=== PATIENT | male | born 1970 | race Caucasian/White ===

== ENCOUNTER → 2017-06-02 | Outpatient (CLI) | payer OTHER ==
--- NOTE | 2017-06-03 08:55 | CT ---
EXAMINATION TYPE: CT brain wo/w con DATE OF EXAM: 06/02/2017 COMPARISON: NONE HISTORY: Patient states he has been having seizures. CT DLP: 2114.90 mGycm, Automated exposure control for dose reduction was used. CONTRAST: Patient injected with 100 mL of Omnipaque 300. CT of the brain is performed utilizing 3 mm thick sections through the posterior fossa and 3 mm thick sections through the remaining calvarium. Study is performed within 24 hours of arrival to the hospital. No abnormal hyperdensity is present to suggest an acute intracranial hemorrhage. No mass lesion is evident. No acute infarcts are evident. Temporal lobes appear symmetrical. Ventricles and sulci are appropriate for the patient age. No suspicious enhancement is evident. Paranasal sinuses and mastoid air cells within the [id number] are clear. IMPRESSIONS: 1. Normal pre and postcontrast CT brain.
== END | disposition home or self-care (01) ==
LOC: RADCTMAIN 19:21
PROVIDERS: ATTEND Family Medicine
DX: R56.9 Unspecified convulsions (principal)
CPT/HCPCS: 70470; Q9967

== ENCOUNTER 2017-10-13 17:12 | Inpatient (IN) | payer OTHER ==
--- NOTE | 2017-10-13 18:16 | ED ---
General Adult HPI - General Chief complaint: Weakness Stated complaint: Weakness Time Seen by Provider: 10/13/17 17:14 Source: patient, RN notes reviewed, old records reviewed Mode of arrival: EMS Limitations: no limitations - History of Present Illness Initial comments: This is a 46-year-old male the ER for evaluation. Patient is accepted in regards to transfer. Patient was originally confused and weak, [facility], patient has no history of PEs found to be severely coagulopathic, patient also unable to ambulate. Patient himself is continued to can be confused, unable to give history history obtained from patient's chart as well as transfer paperwork EMS - Related Data Home Medications Medication Instructions Recorded Confirmed Albuterol Inhaler [Ventolin Hfa 2 puff INHALATION RT-Q6H PRN 06/04/17 10/13/17 Inhaler] Atorvastatin [Lipitor] 80 mg PO HS 06/04/17 10/13/17 Divalproex Sodium [Depakote] 1,000 mg PO BID 06/04/17 10/13/17 Venlafaxine HCl ER [Effexor XR] 150 mg PO BID 06/04/17 10/13/17 buPROPion SR [Wellbutrin SR] 150 mg PO BID 06/04/17 10/13/17 Ipratropium-Albuterol Nebulize 3 ml INHALATION RT-TID PRN 07/12/17 10/13/17 [Duoneb 0.5 mg-3 mg/3 ml Soln] Omeprazole 20 mg PO DAILY 07/12/17 10/13/17 clonazePAM [KlonoPIN] 1 mg PO TID PRN 07/12/17 10/13/17 Allopurinol [Zyloprim] 100 mg PO DAILY 10/13/17 10/13/17 Ergocalciferol (Vitamin D2) 50,000 unit PO Q30D 10/13/17 10/13/17 [Vitamin D2] HYDROcodone/APAP 10-325MG [[place] 1 tab PO Q6H PRN 10/13/17 10/13/17 10-325] Ibuprofen [Motrin] 800 mg PO Q8H PRN 10/13/17 10/13/17 QUEtiapine [SEROquel] 100 mg PO HS 10/13/17 10/13/17 Warfarin [Coumadin] 5 mg PO HS 10/13/17 10/13/17 traZODone HCL 150 mg PO HS 10/13/17 10/13/17 Previous Rx's Medication Instructions Recorded Gabapentin 800 mg PO QID 30 Days tablet 04/03/14 Allergies Allergy/AdvReac Type Severity Reaction Status Date / Time No Known Allergies Allergy Verified 10/13/17 17:45 Review of Systems ROS Statement: Those systems with pertinent positive or pertinent negative responses have been documented in the HPI. ROS Other: All systems not noted in ROS Statement are negative. Past Medical History Past Medical History: Asthma, Chest Pain / Angina, GERD/Reflux, Hyperlipidemia History of Any Multi-Drug Resistant Organisms: None Reported Past Surgical History: Appendectomy, Cholecystectomy, Joint Replacement Additional Past Surgical History / Comment(s): Left hip total replacement 2010, three digits removed on right hand at first joing (2nd, 3rd, and 4th digits); brain surgery secondary to cancer; seizures Past Anesthesia/Blood Transfusion Reactions: No Reported Reaction Past Psychological History: Depression Smoking Status: Current every day smoker Past Alcohol Use History: Abuse Past Drug Use History: Marijuana, Methamphetamine - Past Family History Father Family Medical History: No Reported History General Exam Limitations: altered mental status General appearance: alert, in no apparent distress, anxious Head exam: Present: atraumatic, normocephalic, normal inspection Eye exam: Present: normal appearance, PERRL, EOMI. Absent: scleral icterus, conjunctival injection, periorbital swelling ENT exam: Present: normal exam, mucous membranes moist Neck exam: Present: normal inspection. Absent: tenderness, meningismus, lymphadenopathy Respiratory exam: Present: normal lung sounds bilaterally. Absent: respiratory distress, wheezes, rales, rhonchi, stridor Cardiovascular Exam: Present: regular rate, normal rhythm, normal heart sounds. Absent: systolic murmur, diastolic murmur, rubs, gallop, clicks GI/Abdominal exam: Present: soft, normal bowel sounds. Absent: distended, tenderness, guarding, rebound, rigid Extremities exam: Present: normal inspection, full ROM, normal capillary refill. Absent: tenderness, pedal edema, joint swelling, calf tenderness Back exam: Present: normal inspection Neurological exam: Present: alert, oriented X3, CN II-XII intact Psychiatric exam: Present: normal affect, normal mood Skin exam: Present: warm, dry, intact, normal color. Absent: rash Course Vital Signs 10/13/17 10/13/17 17:18 18:23 Temperature 97.9 F Pulse Rate 69 78 Respiratory 16 16 Rate Blood Pressure 124/77 114/83 O2 Sat by Pulse 99 99 Oximetry - Reevaluation(s) Reevaluation #1: 10/13/17 18:59 Transfer paperwork is thoroughly reviewed Reevaluation #2: 10/13/17 19:00 Attempt airway patient here in the emergency room he is unable, falls Medical Decision Making - Medical Decision Making 46 male the ER for evaluation except in transfer for coagulopathy, elevated INR secondary to positive PEs, patient also has significant ataxia unable to ambulate and will be admitted for further evaluation by patient's physician Disposition Clinical Impression: COPD (chronic obstructive pulmonary disease), Tobacco abuse, Ataxia, Weakness, Coagulopathy Disposition: ADMITTED IP TO THIS HOSP Condition: Fair Referrals: Yuri Martínez MD [Primary Care Provider] - 1-2 days
[2017-10-13] MEDS ORDERED: LORazepam 2 MG/ML INJ IV PRN ×3 (18:55)
[2017-10-13] MEDS ORDERED: THIAMINE 100 MG/ML 2 ML VIAL IM STA (18:55)
[2017-10-13] MEDS ORDERED: HYDROcodone/APAP 5-325MG 1 EACH TAB PO STA (19:13)
[2017-10-13] MEDS: SODIUM CHLORIDE 0.9% 1,000 ML IV SCH ×2 (19:46→21:44)
[2017-10-13 22:01] VITALS: BMI 33.2
[2017-10-13] MEDS: THIAMINE 100 MG TAB PO SCH (23:24)
[2017-10-14 05:25] LABS: Basophils % (A) 1 %; Eosinophils # (A) 0.2 k/uL (0-0.7); Eosinophils % (A) 3 %; HCT 39.9 % (39.0-53.0); HGB 13.4 gm/dL (13.0-17.5); Lymphocytes # (A) 1.8 k/uL (1.0-4.8); Lymphocytes % (A) 33 %; MCH 31.1 pg (25.0-35.0); MCHC 33.5 g/dL (31.0-37.0); MCV 92.9 fL (80.0-100.0); Mean Platelet Volume 7.3; Monocytes # (A) 0.5 k/uL (0-1.0); Monocytes % (A) 9 %; Neutrophils # (A) 2.8 k/uL (1.3-7.7); Neutrophils % (A) 52 %; Platelet Count 180 k/uL (150-450); RDW 13.7 % (11.5-15.5); WBC 5.5 k/uL (3.8-10.6)
[2017-10-14 05:37] LABS: ALT 17 U/L (21-72); AST 11 U/L (17-59); Albumin 3.9 g/dL (3.5-5.0); Alkaline Phosphatase 41 U/L (38-126); Anion Gap 9 mmol/L; Blood Urea Nitrogen 9 mg/dL (9-20); Calcium 9.3 mg/dL (8.4-10.2); Carbon Dioxide 27 mmol/L (22-30); Chloride 103 mmol/L (98-107); Glucose 89 mg/dL (74-99); Potassium 4.2 mmol/L (3.5-5.1); Sodium 139 mmol/L (137-145); Total Bilirubin 0.9 mg/dL (0.2-1.3); Total Protein 6.4 g/dL (6.3-8.2)
[2017-10-14 05:43] LABS: Valproic Acid (Depakene) 47.9 ug/mL
[2017-10-14] MEDS: HYDROcodone/APAP 5-325MG 1 EACH TAB PO PRN ×2 (06:51→14:33)
[2017-10-14] MEDS ORDERED: ALBUTEROL INHALER 60 PUFF/8 GM INHALER INHALATION PRN (10:10)
[2017-10-14] MEDS ORDERED: IBUPROFEN 800 MG TAB PO PRN (10:10)
[2017-10-14] MEDS ORDERED: IPRATROPIUM-ALBUTEROL 3 ML NEB INHALATION PRN (10:10)
[2017-10-14] MEDS: THIAMINE 100 MG TAB PO SCH ×2 (14:34→17:57)
[2017-10-14] MEDS: NICOTINE 21MG/24HR PATCH TRANSDERM SCH (14:34)
[2017-10-14] MEDS: SODIUM CHLORIDE 0.9% 1,000 ML IV SCH ×2 (14:35→21:19)
[2017-10-14] MEDS: GABAPENTIN 400 MG CAP PO SCH ×3 (14:35→20:17)
--- NOTE | 2017-10-14 16:02 | P.CNNES ---
History of Present Illness Consult date: 10/14/17 Reason for Consult: Patient being evaluated for weakness and encephalopathy. History of Present Illness: This patient is a 46-year-old right-handed white male who over the past 2 weeks has been complaining of increasing weakness and confusion. He was taken to [facility] for further evaluation as he was just not feeling right. He was having difficulty ambulating and walking at home and apparently was bumping into the jose. He appeared to be more confused as well. He was seen in the emergency room and [facility]. He underwent some initial laboratory testing including a drug screen which did come back positive for opiates and tricyclics. He is on Depakote for treatment of underlying seizure disorder and his Depakote level at the hospital was toxic at 136.4. Patient apparently had a computed tomography scan of the brain done which was reported negative for any acute changes. He was transferred to [facility] for further evaluation and treatment. Patient states he has been on Depakote recently for seizure disorder. He has been on Depakote thousand milligrams by mouth twice a day. It is likely that the Depakote toxicity cause much of his symptoms of unsteady gait and encephalopathy. We have recommended a routine EEG to be done for further assessment. The patient states he has been doing better since admission to the hospital. He is more clear in his process. He has not been able to stand or ambulate yet without nursing assistance. Physical therapy has been consulted for him as well. Patient denies any previous history of diabetes. He does have history of pulmonary embolus in the past and is currently on long-term anticoagulation with Coumadin. His Depakote has been placed on hold until this evening and we will have a repeat Depakote level done tomorrow for follow-up. The patient is now admitted and neurology has been consulted for further evaluation and recommendations. Review of Systems Constitutional: Denies chills, Denies fever Eyes: denies blurred vision, denies pain Ears, nose, mouth and throat: Denies headache, Denies sore throat Cardiovascular: Denies chest pain, Denies shortness of breath Respiratory: Denies cough Gastrointestinal: Denies abdominal pain, Denies diarrhea, Denies nausea, Denies vomiting Musculoskeletal: Denies myalgias Integumentary: Denies pruritus, Denies rash Neurological: Reports change in mentation, Reports confusion, Reports gait dysfunction, Reports motor disturbance, Reports seizures, Denies numbness, Denies weakness Psychiatric: Denies anxiety, Denies depression Endocrine: Denies fatigue, Denies weight change Past Medical History Past Medical History: Asthma, Chest Pain / Angina, GERD/Reflux, Hyperlipidemia, Liver Disease, Pulmonary Embolus (PE) History of Any Multi-Drug Resistant Organisms: None Reported Past Surgical History: Appendectomy, Cholecystectomy, Joint Replacement Additional Past Surgical History / Comment(s): Left hip total replacement 2010, three digits removed on right hand at first joing (2nd, 3rd, and 4th digits); brain surgery secondary to cancer; seizures Past Anesthesia/Blood Transfusion Reactions: No Reported Reaction Past Psychological History: Depression Additional Psychological History / Comment(s): previous suicide attempt Smoking Status: Former smoker Past Alcohol Use History: Abuse Additional Past Alcohol Use History / Comment(s): Pt states last used approximately 5 years ago. Past Drug Use History: Marijuana, Methamphetamine - Past Family History Father Family Medical History: No Reported History Medications and Allergies Home Medications Medication Instructions Recorded Confirmed Type Gabapentin 800 mg PO QID 30 Days tablet 04/03/14 10/13/17 Rx Albuterol Inhaler [Ventolin Hfa 2 puff INHALATION RT-Q6H PRN 06/04/17 10/13/17 History Inhaler] Atorvastatin [Lipitor] 80 mg PO HS 06/04/17 10/13/17 History Divalproex Sodium [Depakote] 1,000 mg PO BID 06/04/17 10/13/17 History Venlafaxine HCl ER [Effexor XR] 150 mg PO BID 06/04/17 10/13/17 History buPROPion SR [Wellbutrin SR] 150 mg PO BID 06/04/17 10/13/17 History Ipratropium-Albuterol Nebulize 3 ml INHALATION RT-TID PRN 07/12/17 10/13/17 History [Duoneb 0.5 mg-3 mg/3 ml Soln] Omeprazole 20 mg PO DAILY 07/12/17 10/13/17 History clonazePAM [KlonoPIN] 1 mg PO TID PRN 07/12/17 10/13/17 History Allopurinol [Zyloprim] 100 mg PO DAILY 10/13/17 10/13/17 History Ergocalciferol (Vitamin D2) 50,000 unit PO Q30D 10/13/17 10/13/17 History [Vitamin D2] HYDROcodone/APAP 10-325MG [[place] 1 tab PO Q6H PRN 10/13/17 10/13/17 History 10-325] Ibuprofen [Motrin] 800 mg PO Q8H PRN 10/13/17 10/13/17 History QUEtiapine [SEROquel] 100 mg PO HS 10/13/17 10/13/17 History Warfarin [Coumadin] 5 mg PO HS 10/13/17 10/13/17 History traZODone HCL 150 mg PO HS 10/13/17 10/13/17 History Allergies Allergy/AdvReac Type Severity Reaction Status Date / Time No Known Allergies Allergy Verified 10/13/17 17:45 Physical Examination - Vital Signs Vital Signs: Vital Signs Temp Pulse Pulse Resp BP BP Pulse Ox 10/14/17 08:25 97.2 F L 66 16 114/69 96 10/14/17 04:00 97.8 F 63 16 136/62 95 10/13/17 23:35 97.6 F 77 16 130/68 10/13/17 20:09 97.9 F 66 16 123/75 97 10/13/17 19:50 71 18 115/76 94 L 10/13/17 18:23 78 16 114/83 99 10/13/17 17:18 97.9 F 69 16 124/77 99 Intake and Output 10/14/17 10/14/17 10/14/17 06:59 14:59 22:59 Intake Total 1200 474 Output Total 2000 400 Balance -800 74 Intake: Intake, IV Titration 700 Amount Sodium Chloride 0.9% 1, 700 000 ml @ 100 mls/hr IV . Q10H [facility] Rx#:[id number] Oral 500 474 Output: Urine 2000 400 Other: Voiding Method Urinal # Voids 2 Weight 104.3 kg - Constitutional General appearance: average body habitus, cooperative - EENT EENT: PERRL, mucous membranes moist - Respiratory Respiratory: lungs clear, normal breath sounds - Cardiovascular Cardiovascular: regular rate, normal S1, normal S2 Extremities: no peripheral edema bilaterally - Gastrointestinal Gastrointestinal: normoactive bowel sounds - Integumentary Integumentary: normal - Neurologic Cranial nerve examination: PERRL, EOMI, V1/V2/V3 grossly intact, face symmetric , tongue midline, intact gag reflex, intact corneal reflex, normal palatal elevation Speech examination: intact Sensorimotor examination: intact Motor examination - right side: 4/5: biceps, triceps, wrist flexion, wrist extension, climbing guide, hip flexors, knee extensors, dorsiflexion, toe extension (EHL) , plantarflexion Motor examination - left side: 4/5: biceps, triceps, wrist flexion, wrist extension, climbing guide, hip flexors, knee extensors, dorsiflexion, toe extension (EHL) , plantarflexion Detailed sensory examination: intact Reflex and gait examination: intact Reflexes: 1+: ankle, bicep, knee, tricep - Musculoskeletal Musculoskeletal: no pain - Psychiatric Psychiatric: mood/affect appropriate, cooperative Results - Laboratory Findings CBC and BMP: 10/14/17 05:08 10/14/17 05:08 Abnormal Lab Findings: Abnormal Labs 10/14/17 10/14/17 05:08 05:08 AST 11 L ALT 17 L Ammonia 38 H Assessment and Plan (1) Acute encephalopathy Current Visit: Yes Status: Acute Code(s): G93.40 - ENCEPHALOPATHY, UNSPECIFIED SNOMED Code(s): 78525383 (2) Seizures Current Visit: No Status: Acute Code(s): R56.9 - UNSPECIFIED CONVULSIONS SNOMED Code(s): 64819841 (3) History of pulmonary embolus (PE) Current Visit: Yes Status: Acute Code(s): Z86.711 - PERSONAL HISTORY OF PULMONARY EMBOLISM SNOMED Code(s): 802864362 (4) Coagulopathy Current Visit: Yes Status: Acute Code(s): D68.9 - COAGULATION DEFECT, UNSPECIFIED SNOMED Code(s): 08914680 (5) COPD (chronic obstructive pulmonary disease) Current Visit: Yes Status: Acute Code(s): J44.9 - CHRONIC OBSTRUCTIVE PULMONARY DISEASE, UNSPECIFIED SNOMED Code(s): 91481984 Plan: This patient is a 46-year-old male admitted with 2 week history of increasing weakness and confusion at home. He was seen in the emergency room at [facility] yesterday. He had evidence of Depakote toxicity with the Depakote level of 136.4. He underwent a computed tomography scan of the brain which was negative for any acute changes. He had evidence of a acute encephalopathy. He was transferred to [facility] for further management. His repeat Depakote level today was 47.9. He will be restarted on Depakote later this evening. The patient likely had evidence of acute encephalopathy secondary to Depakote toxicity. He is doing better and seems to be more alert and oriented. As noted his CAT scan of the brain was negative for any acute changes. Would recommend physical therapy evaluation and possible inpatient rehab placement depending on his progress. We will obtain routine EEG for further evaluation of seizure disorder. His overall prognosis at this time remains very guarded. We will continue close neurological follow- up of this patient during this admission. Time with Patient: Greater than 30
--- NOTE | 2017-10-14 17:55 | PN ---
PROGRESS NOTE DATE OF SERVICE: 10/14/2017 CHIEF COMPLAINT: Ataxia and mental status changes. HISTORY OF PRESENT ILLNESS: This gentleman is about the same. He is still a little bit confused and his speech and mentation are slowed. He has no focal neurologic signs or symptoms. He denies any headaches, chest pain, change in vision or hearing, etc. PHYSICAL EXAMINATION: His chest is clear and the cardiac exam is normal. The abdomen is soft, nontender. Extremities are normal. IMPRESSION: 1. Mental status changes. 2. Chronic obstructive pulmonary disease. 3. Encephalopathy, type unknown. 4. Depression. PLAN: Continue workup and increase activity. Await neurology consult. MMODL / IJN: [id number] /
--- NOTE | 2017-10-14 17:58 | HP ---
HISTORY AND PHYSICAL CHIEF COMPLAINT: Ataxia and dysarthria, as well as confusion. HISTORY OF PRESENT ILLNESS: This is another admission for this 46-year-old white male. He suddenly presented to a nearby hospital with inability to walk, ataxia, confusion and difficulty with speech. He had no focal neurologic symptoms or findings. His CT was normal. His vital signs were not unusual and complained of no headache, chest pain, change in vision hearing, focal neurologic deficits, fever and chills, etc. He had no urinary complaints. Past medical history, family history, personal and social histories reveal that he has had a lot of difficulty with depression, COPD, partial amputation of the right hand. He does not drink. ALLERGIES: He is not allergic to any medication. MEDICATIONS: 1. Effexor XR 150 mg twice a day. 2. Coumadin 5 mg once a day. 3. Omeprazole 20 mg once a day. 4. Klonopin 1 mg t.i.d. p.r.n. 5. Depakote 500 mg twice a day. 6. Gabapentin 800 mg 4 times a day. 7. Atorvastatin 80 mg q.h.s. 8. Trazodone 150 mg q.h.s. 9. Allopurinol 100 mg once a day. 10.Vitamin D3 50,000 units a month. 11.Seroquel 100 mg once a day. 12.Wellbutrin 150 mg twice a day. 13.Vicodin 5 q.4 hours p.r.n. 14.Ventolin HFA p.r.n. 15.Updrafts with albuterol and ipratropium bromide. 16.QVAR 40 mcg 1 puff twice a day. 17.Ibuprofen 800 mg 4 times a day. PAST SURGICAL HISTORY: 1. Surgically she has had treatment for the amputation of the right hand from welder/installer. 2. Cholecystectomy. 3. Appendectomy. 4. Total left hip. 5. Removal, basal cell carcinoma from the face. SOCIAL HISTORY: He used to smoke but does not any longer. He denies use alcohol or drugs. PHYSICAL EXAM: Blood pressure is 114/70, pulse 60, respirations 18. He is afebrile. GENERAL: He appeared to be well developed, well nourished, no acute distress. Skin color is normal. Skin is warm, dry. Lymph nodes not enlarged. Head, ears, eyes, nose, mouth, and throat were normal and neck veins not distended. Thyroid is not enlarged. Carotids are normal. Chest is clear. Cardiac exam is normal sinus rhythm and no murmurs or extra sounds. The abdomen is soft and slightly protuberant, nontender without visceromegaly or masses. Extremities are normal and neurologically sensory and motor exam is normal. His speech was slow and he seemed inappropriate. He had no cranial nerve findings or signs. IMPRESSION: He is admitted to the hospital with: Mental status changes with dizziness, confusion, and ataxia, etiology unknown. PLAN: 1. Bed rest. 2. IV fluids. 3. Frequent monitoring of his neurologic status and vital signs. 4. Neurology consult. MMODL / IJN: [id number] /
[2017-10-14 18:42] LABS: INR 1.6 (<1.2); Prothrombin Time 15.2 sec (9.0-12.0)
[2017-10-14] MEDS: WARFARIN 5 MG TAB PO SCH (20:17)
[2017-10-14] MEDS: VENLAFAXINE HCL ER 150 MG CAP PO SCH (20:17)
[2017-10-14] MEDS: DIVALPROEX 500 MG TABLET.DR PO SCH (20:17)
[2017-10-14] MEDS: buPROPion SR 150 MG TABLET.ER PO SCH (20:17)
[2017-10-14] MEDS: traZODone HCL 50 MG TAB PO SCH (20:17)
[2017-10-14] MEDS: QUEtiapine 100 MG TAB PO SCH (20:17)
[2017-10-15] MEDS: HYDROcodone/APAP 5-325MG 1 EACH TAB PO PRN ×3 (03:18→18:15)
[2017-10-15] MEDS: ALLOPURINOL 100 MG TAB PO SCH (09:51)
[2017-10-15] MEDS: buPROPion SR 150 MG TABLET.ER PO SCH ×2 (09:52→20:45)
[2017-10-15] MEDS: DIVALPROEX 500 MG TABLET.DR PO SCH ×2 (09:52→20:46)
[2017-10-15] MEDS: GABAPENTIN 400 MG CAP PO SCH ×4 (09:53→20:50)
[2017-10-15] MEDS: PANTOPRAZOLE 40 MG TABLET PO SCH (09:53)
[2017-10-15] MEDS: NICOTINE 21MG/24HR PATCH TRANSDERM SCH (09:53)
[2017-10-15] MEDS: VENLAFAXINE HCL ER 150 MG CAP PO SCH ×2 (09:53→20:47)
[2017-10-15] MEDS: SODIUM CHLORIDE 0.9% 1,000 ML IV SCH ×2 (11:39→20:43)
[2017-10-15] MEDS: THIAMINE 100 MG TAB PO SCH ×2 (13:55→18:16)
--- NOTE | 2017-10-15 14:07 | P.PN ---
Subjective Progress Note Date: 10/15/17 This patient is a 46-year-old male who was admitted to Hospital with symptoms of altered mental status and confusion. Patient has a history of underlying seizure disorder for which he was taking Depakote. He was initially admitted to Hospital in [place] and his Depakote level was toxic. He was transferred to [place] for further evaluation and treatment. He is showing slight improvement in terms of his mental status. His Depakote level is being closely followed and monitored. His repeat Depakote level this morning is 70.5. He is to be maintained on his current dose of Depakote. Would continue with PT OT evaluation for the patient and possible rehab placement depending on his progress. Patient does seem to be doing somewhat better. He is sitting up in chair next to his bed and seems to be much more awake and alert. According to his nurse he has been up and ambulating in the hallway without much difficulty. He is to have a routine EEG today which will be reviewed later to rule out any possibility of seizure focus. As noted his Depakote level today is therapeutic. They recommended he have a follow-up Depakote level done in a week following discharge. We will continue close neurological follow-up for the patient. His overall prognosis at this time remains guarded. Objective - Vital Signs Vital signs: Vital Signs Temp 97.3 F L 10/15/17 09:30 Pulse 79 10/15/17 11:25 Resp 16 10/15/17 11:25 BP 126/82 10/15/17 11:25 Pulse Ox 98 10/15/17 11:25 Intake & Output 10/14/17 10/15/17 10/15/17 18:59 06:59 18:59 Intake Total 1611 500 476 Output Total 800 1900 600 Balance 811 -1400 -124 Weight 100.5 kg Intake: IV 500 Sodium Chloride 0.9% 1, 500 000 ml @ 100 mls/hr IV . Q10H [facility] Rx#:[id number] Intake, IV Titration 900 Amount Sodium Chloride 0.9% 1, 900 000 ml @ 100 mls/hr IV . Q10H [facility] Rx#:[id number] Oral 711 476 Output: Urine 800 1900 600 Other: Voiding Method Urinal Urinal # Voids 1 - Exam Physical examination: PHYSICAL EXAMINATION: Patient is resting comfortably in bed. VITAL SIGNS: Blood pressure is [126/82]. Heart rate is [79]. Respiration is [16] . Temperature is [97.3]. HEENT: Head is atraumatic, neck is supple, there were no carotid bruits. CHEST: Lungs are clear to auscultation and percussion. CARDIAC: S1, S2 normal rate and rhythm. There is no murmur. ABDOMEN: Soft and nontender. Bowel sounds are present. EXTREMITIES: There is no pedal edema. Peripheral pulses are present. Neurological examination: Patient's neurological examination is unchanged from yesterday. Patient is sitting up in chair and next to his bedside. He is much more awake and alert today as compared to yesterday. Neurological examination is nonfocal - Labs CBC & Chem 7: 10/14/17 05:08 10/14/17 05:08 Labs: Abnormal Lab Results - Last 24 Hours (Table) 10/14/17 Range/Units 05:08 PT 15.2 H (9.0-12.0) sec INR 1.6 H (<1.2) Assessment and Plan (1) Acute encephalopathy Current Visit: Yes Status: Acute Code(s): G93.40 - ENCEPHALOPATHY, UNSPECIFIED SNOMED Code(s): 58285001 (2) Seizures Current Visit: No Status: Acute Code(s): R56.9 - UNSPECIFIED CONVULSIONS SNOMED Code(s): 56707925 (3) History of pulmonary embolus (PE) Current Visit: Yes Status: Acute Code(s): Z86.711 - PERSONAL HISTORY OF PULMONARY EMBOLISM SNOMED Code(s): 835657326 (4) Coagulopathy Current Visit: Yes Status: Acute Code(s): D68.9 - COAGULATION DEFECT, UNSPECIFIED SNOMED Code(s): 72191594 (5) COPD (chronic obstructive pulmonary disease) Current Visit: Yes Status: Acute Code(s): J44.9 - CHRONIC OBSTRUCTIVE PULMONARY DISEASE, UNSPECIFIED SNOMED Code(s): 07151209 Plan: This patient is a 46-year-old male being evaluated for episode of confusion and disorientation. Patient was initially evaluated at [facility]. He was brought in due to increasing weakness and confusion. He has a history of seizure disorder for which he has been taking Depakote. His Depakote level was toxic at the [facility]. He was transferred to [facility] for further management. His Depakote level was rechecked today and it is therapeutic at 70.5. Patient is showing slight improvement in his overall mental status. He is undergone computed tomography scan of the brain which revealed no acute findings. Patient is sitting up in chair next to his bed and seems to be much more awake and alert. Would recommend to maintain him on his current dose of Depakote. We will get one repeat Depakote level tomorrow morning and hopefully if this is therapeutic he may be considered for discharge to home. We will continue close neurological follow-up for the patient during this admission.
--- NOTE | 2017-10-15 14:16 | PN ---
PROGRESS NOTE DATE OF SERVICE: 10/15/2017. CHIEF COMPLAINT: Mental status changes. HISTORY OF PRESENT ILLNESS: This gentleman seems to be doing a little bit better. He is going down for an EEG. Turns out his Depakote level was extremely high and this may have been causing his problem. Physical exam is deferred as he is going down for an EEG. IMPRESSION: 1. Mental status changes and ataxia. 2. History of seizure disorder. 3. Hyperprothrombinemia, iatrogenic. PLAN: Continue to increase activity and await results of EEG and further workup. MMODL / IJN: [id number] /
[2017-10-15 17:47] VITALS: RESP 18
[2017-10-15] MEDS: QUEtiapine 100 MG TAB PO SCH (20:46)
[2017-10-15] MEDS: traZODone HCL 50 MG TAB PO SCH (20:46)
[2017-10-15] MEDS: WARFARIN 5 MG TAB PO SCH (20:47)
[2017-10-16 06:23] LABS: INR 1.1 (<1.2)
[2017-10-16] MEDS: SODIUM CHLORIDE 0.9% 1,000 ML IV SCH (07:08)
[2017-10-16 07:58] VITALS: BP 113/57; PULSE 69; TEMP 97
[2017-10-16] MEDS: HYDROcodone/APAP 5-325MG 1 EACH TAB PO PRN (08:04)
[2017-10-16] MEDS: GABAPENTIN 400 MG CAP PO SCH (08:06)
[2017-10-16] MEDS: buPROPion SR 150 MG TABLET.ER PO SCH (08:06)
[2017-10-16] MEDS: DIVALPROEX 500 MG TABLET.DR PO SCH (08:06)
[2017-10-16] MEDS: PANTOPRAZOLE 40 MG TABLET PO SCH (08:06)
[2017-10-16] MEDS: ALLOPURINOL 100 MG TAB PO SCH (08:06)
[2017-10-16] MEDS: VENLAFAXINE HCL ER 150 MG CAP PO SCH (08:07)
[2017-10-16] MEDS: NICOTINE 21MG/24HR PATCH TRANSDERM SCH (08:07)
--- NOTE | 2017-10-16 11:06 | EEG ---
ELECTROENCEPHALOGRAM REPORT DATE OF EE10/15/2017 ELECTROENCEPHALOGRAPHIC EXAMINATION REPORT: INDICATION FOR EXAMINATION: This patient is a 46-year-old male being evaluated for seizure disorder and acute encephalopathy following toxic Depakote level. AGE: 46. EEG FINDINGS: A routine 21 channel awake digital EEG recording was accomplished utilizing the 10-20 international system with bipolar and referential montages. The background activity in the most alert resting state consists of a low to medium amplitude, poorly developed and poorly sustained 6 Hz activity over the posterior head regions. This posterior rhythm attenuates to eye opening. There is a small amount of low amplitude 18-20 Hz beta activity seen maximally over the anterior head regions. Muscle and movement artifact was observed on a few occasions during the tracing. Hyperventilation was not performed. Photic stimulation at flash frequencies of 2-30 Hz produced a minimal occipital driving response. No epileptiform discharges were seen. IMPRESSION: This EEG is moderately abnormal in a diffuse fashion due to slowing of the EEG background. The EEG failed to reveal any focal, lateralized, or epileptiform abnormalities. Clinical correlation is recommended. MMDEL / PATRICIAN: [id number] /
--- NOTE | 2017-10-16 19:24 | DS ---
DISCHARGE SUMMARY CHIEF COMPLAINT: Ataxia and mental status changes with lethargy. HISTORY OF PRESENT ILLNESS AND PHYSICAL EXAM: Details of this man's history and physical can be found in the initial workup. LABORATORY STUDIES: While he was in a hospital he had laboratory studies details which can be found in the laboratory section of his chart. COURSE IN HOSPITAL: After admission he was placed on bedrest, started on intravenous fluids and had frequent monitoring of his neurologic status and vital signs. His Depakote level is extremely high and it is felt that this is what causes difficulty. After the level dropped, he returned to normal. He is doing well. It was felt that he could go home on the 3rd and he will go home on his usual activity and diet and medication and follow up in the office in few days. FINAL DIAGNOSES: 1. Depakote toxicity. 2. Ataxia. 3. Chronic obstructive pulmonary disease. 4. History of hypertension. 5. History of pulmonary embolism. 6. Hyperprothrombinemia. OPERATIONS: None. CONSULTATIONS: Neurology. He is improved. MMODL / IJN: [id number] /
== END 2017-10-16 11:01 | disposition home or self-care (01) | DRG 93 ==
LOC: EC 17:12 → 6SEL 18:55
PROVIDERS: ADMIT Family Medicine; ATTEND Family Medicine
DX: G92 Toxic encephalopathy (principal); E78.5 Hyperlipidemia, unspecified; T42.6X5A Adverse effect of other antiepileptic and sedative-hypnotic drugs, initial encounter; F17.200 Nicotine dependence, unspecified, uncomplicated; F32.9 Major depressive disorder, single episode, unspecified; G40.909 Epilepsy, unspecified, not intractable, without status epilepticus; I10 Essential (primary) hypertension; J44.9 Chronic obstructive pulmonary disease, unspecified; K21.9 Gastro-esophageal reflux disease without esophagitis; Z79.01 Long term (current) use of anticoagulants; Z79.899 Other long term (current) drug therapy; Z85.828 Personal history of other malignant neoplasm of skin; Z86.711 Personal history of pulmonary embolism; Z91.5 Personal history of self-harm; R79.1 Abnormal coagulation profile
CPT/HCPCS: 80053; 80164; 80171; 82140; 83735; 85025; 85610; 95819; 96372; 99285

== ENCOUNTER → 2017-12-10 | Outpatient (CLI) | payer OTHER ==
[2017-12-10 12:49] LABS: Blood Urea Nitrogen 4 mg/dL (9-20)
--- NOTE | 2017-12-10 13:34 | CT ---
EXAMINATION TYPE: CT brain wo/w con DATE OF EXAM: 12/10/2017 COMPARISON: 06/04/2017 HISTORY: Seizure CT DLP: 2505mGycm CONTRAST: CT scan of the head is performed without and with IV Contrast, patient injected with 100 ml mL of Iso akshat 300. Unenhanced followed by contrast enhanced CT of the brain is submitted for evaluation. The ventricles are midline. There is no evidence for intracranial hemorrhage or extra-axial collection. No mass e ffects are identified. Visualized bony calvarium is intact. Contrast is administered and no enhanci ng lesions are detected. No pathologic enhancement is identified. If symptoms persist consider MRI. IMPRESSION: Normal CT brain.
== END | disposition home or self-care (01) ==
LOC: RADCTMAIN 12:11
PROVIDERS: ATTEND Family Medicine
DX: R56.9 Unspecified convulsions (principal)
CPT/HCPCS: 82565; 84520; 70470; 36415; Q9967

== ENCOUNTER → 2018-05-25 | Outpatient (CLI) | payer OTHER ==
--- NOTE | 2018-05-25 17:03 | MR ---
EXAMINATION TYPE: MR lumbar spine wo con DATE OF EXAM: 05/25/2018 COMPARISON: HISTORY: Low back pain TECHNIQUE: Multiplanar, multisequence images of the lumbar spine were acquired. L1-L2: Loss of disc height and signal is present. Small central posterior disc protrusion causes mini mal anterior mass effect on the thecal sac. No significant central canal stenosis or foraminal encroa chment. L2-L3: Normal disc appearance without desiccation. No herniation, protrusion or disc bulging. No ca nal stenosis is present. Foramina are patent bilaterally. L3-L4: Normal disc appearance without desiccation. No herniation, protrusion or disc bulging. No ca nal stenosis is present. Foramina are patent bilaterally. L4-L5: Posterior broad-based disc bulge contacts anterior thecal sac. There is facet arthropathy goel ge. No significant central stenosis or foraminal encroachment on the left, spinal curvature contribut es to cause some foraminal encroachment on the right. L5-S1: Loss of disc signal is compatible with disc desiccation, there is minimal endplate discogenic marrow signal change. Lateral extension of endplate disc complex encroaches somewhat on the neural fo ramina. Lumbar segments are intact. No paraspinal masses are identified. Conus medullaris has a normal appe arance. There is a mild spinal curvature. IMPRESSION: Mild degenerative disc disease. Scoliosis.
== END | disposition home or self-care (01) ==
LOC: RADMRIMAIN 12:42
PROVIDERS: ATTEND Physical Medicine & Rehabilitation
DX: M51.36 Other intervertebral disc degeneration, lumbar region (principal); M51.37 Other intervertebral disc degeneration, lumbosacral region; M41.86 Other forms of scoliosis, lumbar region
CPT/HCPCS: 72148

== ENCOUNTER → 2018-11-24 | Outpatient (CLI) | payer OTHER ==
--- NOTE | 2018-11-24 17:03 | MR ---
EXAMINATION TYPE: MR lumbar spine wo/w con DATE OF EXAM: 11/24/2018 COMPARISON: 05/25/2018 HISTORY: Lt leg weakness, pain CONTRAST: 10 mL intravenous Gadavist. TECHNIQUE: Multiplanar, multisequence images of the lumbar spine were acquired. FINDINGS: L5-S1: Central disc bulge has mild anterior thecal sac contact. No spinal canal stenosis is present. Neural foramen are patent. L4-L5: No significant disc bulge or disc herniation. No spinal canal stenosis. No foraminal stenosi s. L3-L4: No significant disc bulge or disc herniation. No spinal canal stenosis. No foraminal stenosi s. L2-L3: No significant disc bulge or disc herniation. No spinal canal stenosis. No foraminal stenosi s. L1-L2: There is a tiny cyst right paracentral subligamentous disc herniation with mild anterior theca l sac compression. No spinal canal stenosis is evident. The neural foramen are patent. T12-L1: No significant disc bulge or disc herniation. No spinal canal stenosis. No foraminal stenos is. No abnormal enhancement. IMPRESSION: 1. Tiny right paracentral disc herniation L1-2 with mild anterior thecal sac contact. This may be sma ller than the comparison. 2. Central disc bulge with mild anterior thecal sac contact at L5-S1, no spinal canal stenosis is pre sent.
== END | disposition home or self-care (01) ==
LOC: RADMRIMAIN 12:48
PROVIDERS: ATTEND Family Medicine
DX: M51.27 Other intervertebral disc displacement, lumbosacral region (principal)
CPT/HCPCS: 72158; A9585